=== PATIENT | male | born 1955 | race Hispanic/Latino ===

== ENCOUNTER 2023-10-27 01:47 | Emergency (ER) | payer OTHER ==
[2023-10-27] MEDS ORDERED: Sodium Chloride 0.9% 1,000 ML ONE ×2 (02:24→03:55)
[2023-10-27] MEDS ORDERED: Cefepime 2 GM VIAL ONE (02:27)
[2023-10-27 02:53] LABS: Base Excess-Venous -2.1 mmol/L (-2.0 to 3.0); Bicarbonate (HCO3v) 22.1 mmol/L (22.0-28.0); CO2 Tension (PvCO2) 35.3 mmHg (42.0-51.0); Calcium, Ionized 1.06 mmol/L (1.15-1.33); Chloride 96 mmol/L (98-107); Hemoglobin - Calc 13.1 g/dL (14.0-18.0); Potassium 4.5 mmol/L (3.5-5.1); Sodium 127 mmol/L (138-145); T. Carbon Dioxide 23.2 mmol/L (22.0-28.0); vO2 Saturation-calc 93.6 % (60.0-85.0)
[2023-10-27 03:03] LABS: Band 15 % (5-11); Lymphocytes 3 % (21-51); MDiff Complete? YES; Mean Corpuscular HGB CONC 34.2 g/dL (32.0-36.0); Mean Corpuscular Hemoglobin 29.8 pg (27.0-31.0); Mean Corpuscular Volume 87.1 fl (78.0-98.0); Mean Platelet Volume 6.3 fL (7.4-10.4); Monocytes 8 % (0-10); Neutrophil 74 % (42-75); Platelet Adequacy Comment Appears Adequate; Platelet Count 304 10x3/uL (130-400); RBC Distribution Width 12.5 % (11.5-14.5); Red Blood Cell (RBC) Count 4.02 mill/uL (4.70-6.10); White Blood Cell (WBC) Count 28.2 10x3/uL (4.8-10.8)
[2023-10-27 03:24] LABS: ALT (SGPT) 28 U/L (8-55); AST (SGOT) 40 U/L (5-34); Albumin 1.9 g/dL (3.4-4.8); Alkaline Phosphatase 114 U/L (40-110); Anion Gap 18 mmol/L (10-20); BUN (Urea Nitrogen) 36 mg/dL (8.4-25.7); Calc. Creatinine Clearance 0 mL/min (70-130); Calcium 8.3 mg/dL (7.8-10.44); Carbon Dioxide 18 mmol/L (23-31); Chloride 95 mmol/L (98-107); Estimated GFR 50; Globulin 5.2 g/dL (2.4-3.5); Glucose 115 mg/dL (80-115); Potassium 4.4 mmol/L (3.5-5.1); Protein, Total 7.1 g/dL (5.8-8.1); Sodium 127 mmol/L (136-145)
[2023-10-27] MEDS ORDERED: Vancomycin 1 GM VIAL ONE (03:42)
[2023-10-27] MEDS ORDERED: Sodium Chloride 0.9% 250 ML 500 ML ONE (03:44)
== END 2023-10-27 10:21 | disposition short-term general hospital (02) ==
LOC: NAV ERS 01:47 → EEVIPCON 01:47 → NAV ERS 10:21
DX: L02.211 Cutaneous abscess of abdominal wall (principal); L03.311 Cellulitis of abdominal wall; Z87.891 Personal history of nicotine dependence
CPT/HCPCS: 36415; 80053; 82330; 82435; 82803; 83605; 84132; 84295; 85014; 85025; 87040; 87070; 87077; 87186; 87205; 96361; 96365; 96366; 96367; J0692; J3370; J7030; J7050